=== PATIENT | male | born 1985 | race Caucasian/White ===

== ENCOUNTER 2018-04-24 22:03 | Emergency (ER) | payer SELFPAY ==
[~2018-04-24] VITALS: Ht 170.2 cm; Wt 68.0 kg
[2018-04-24] MEDS ORDERED: LET 3ml Soln TOPIC ONE (22:30)
--- NOTE | 2018-04-24 22:33 | Emergency Room Report ---
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 Otherwise denies any trauma to the upper arm Denies any lapse of consciousness Patient has localized discomfort to the lacerated area Denies any numbness or tingling in the extremity Allergies: Coded Allergies: No Known Allergies (Unverified , 04/24/18) Patient History Past Medical History: see triage record Pertinent Family History: none Reviewed Nursing Documentation: PMH: Agreed; PSxH: Agreed Review of Systems All Other Systems: negative except mentioned in HPI Physical Exam Vital Signs Date Time Temp Pulse Resp B/P (MAP) Pulse Ox O2 Delivery O2 Flow Rate FiO2 04/24/18 22:10 98.2 70 16 120/80 99 Room Air 98.2 Sp02 EP Interpretation: reviewed, normal General Appearance: well appearing, no apparent distress Head: normocephalic, atraumatic Eyes: bilateral eye PERRL, bilateral eye EOMI ENT: hearing grossly normal, normal pharynx, TMs + canals normal, uvula midline Neck: full range of motion Musculoskeletal: other - Patient is appropriate proximation of all digits able to make a fist and extend all fingers appropriately Neurologic: alert, oriented x3, responsive Skin: other - Approximately 1 cm laceration mid point of the palmar aspect right hand Lymphatic: no adenopathy Procedures Laceration/Wound Repair Laceration/Wound Repair : Consent: Verbal Wound Location: upper extremity Wound's Depth, Shape: into muscle Wound Length (cm): 1 Wound Explored: clean Irrigated w/ Saline (ccs): 200 Betadine Prep?: Yes Anesthesia: other - L.E.T Volume Anesthetic (ccs): 2 Wound Debrided: moderate Wound Repaired With: sutures Suture Size/Type: 5:0 Number of Sutures: 3 Layer Closure?: No Patient Tolerated: Well Complications: None Medical Decision Making Diagnostic Impression: Primary Impression: Dog bite Additional Impression: Laceration ER Course Given the patient's history and presentation the area was cleansed and irrigated heavily Patient provided with antibiotics here Suture repair as noted above And otherwise stable for initial conservative outpatient trial Last Vital Signs Date Time Temp Pulse Resp B/P (MAP) Pulse Ox O2 Delivery O2 Flow Rate FiO2 04/24/18 22:10 98.2 70 16 120/80 99 Room Air 98.2 Status: improved Disposition: HOME, SELF-CARE Condition: Improved Scripts Amoxicillin/Potassium Clav 875-125* (AUGMENTIN 875-125 TABLET*) 1 Each Tablet 1 TAB ORAL TWICE A DAY for 5 Days, TAB Prov: Mike Cabello DO 04/24/18 Additional Instructions: Patient is provided with the discharge instructions notified to follow up with primary doctor in the next 2-3 days otherwise return to the er with any worsening symptoms. Please note that this report is being documented using [employer] technology. This can lead to erroneous entry secondary to incorrect interpretation by the dictating instrument. Mike Cabello DO Apr 24, 2018 22:33
[2018-04-24] MEDS ORDERED: Hydrogen Peroxide 473ml Bottle TOPIC ONE (23:15)
[2018-04-24] MEDS ORDERED: Augmentin 875mg Tab ORAL ONE (23:30)
[2018-04-24] MEDS ORDERED: AUGMENTIN 875-1 EAC1 ORAL (23:45)
[2018-04-24] MEDS ORDERED: Bacitracin Oint UD TOPIC ONE (23:45)
[2018-04-24 23:55] VITALS: BP 122/80
== END 2018-04-24 23:55 | disposition home or self-care (01) ==
LOC: EMR 22:41
DX: S61.451A Open bite of right hand, initial encounter (principal); S61.411A Laceration without foreign body of right hand, initial encounter; W54.0XXA Bitten by dog, initial encounter; Y93.9 Activity, unspecified; Y92.9 Unspecified place or not applicable
CPT/HCPCS: 99283